=== PATIENT | male | born 1930 | race Caucasian/White ===

== ENCOUNTER 2017-10-23 16:02 | Outpatient (CLI) | payer MEDICARE, OTHER | END 2017-10-23 16:03 | disposition short-term general hospital (02) | LOC: EMS 16:02 | PROVIDERS: ATTEND Surgery | DX: M54.9 Dorsalgia, unspecified (principal); M79.641 Pain in right hand; W01.0XXA Fall on same level from slipping, tripping and stumbling without subsequent striking against object, initial encounter; Y92.000 Kitchen of unspecified non-institutional (private) residence as the place of occurrence of the external cause | CPT/HCPCS: A0425; A0429; A0888 ==